=== PATIENT | male | born 1970 | race Caucasian/White ===

== ENCOUNTER 2018-11-14 11:26 | Emergency (ER) | payer OTHER ==
[2018-11-14] MEDS ORDERED: Sodium Chloride 0.9% 1,000 ML IV ONE (11:32)
[2018-11-14] MEDS ORDERED: Sodium Chloride 0.9% 10 ML Syringe FLUSH PRN (11:47)
[2018-11-14] MEDS ORDERED: LORazepam 2 MG/ML SDV IVPUSH ONE (11:55)
--- NOTE | 2018-11-14 12:27 | EDM.PDOC ---
ED HPI GENERAL MEDICAL PROBLEM - General Chief Complaint: Neuro Symptoms/Deficits Stated Complaint: POSS STROKE Time Seen by Provider: 11/14/18 12:00 Source of Information: Reports: Patient, EMS, RN, Other (friends) History Limitations: Reports: No Limitations - History of Present Illness INITIAL COMMENTS - FREE TEXT/NARRATIVE: 48 yr male presents via ambulance. EMS states pt had a seizure while out fishing with friends. Friend states pt started with seizure and fell and hit head on the boat. Pt states no pain and states he doesn't remember this. No urination during this episode, no biting of the tongue. Pt is alert now. This happened around 10:30 this am. Friend states history of alcohol use and pt stated he had 6 beers last night and none today. Pt is nervous and shaky. Small amount of hand tremor and shaky with tongue noted. Hand grasps and foot strength is equal bilaterally. Pupils reactive bilaterally. No blood noted to the mouth. Pt is alert and talking and upset that he is in the ER. - Related Data Allergies Allergy/AdvReac Type Severity Reaction Status Date / Time No Known Allergies Allergy Verified 11/14/18 11:46 ED ROS GENERAL - Review of Systems Review Of Systems: See Below Constitutional: Reports: No Symptoms HEENT: Reports: No Symptoms Respiratory: Reports: No Symptoms Cardiovascular: Reports: No Symptoms GI/Abdominal: Reports: No Symptoms : Reports: No Symptoms Musculoskeletal: Reports: No Symptoms Skin: Reports: Other (sunburn from out fishing) Neurological: Reports: Other (friend states seizure like activity in the boat. Pt doesn't remember the seizure or fall in the boat or hit on the head.) Psychiatric: Reports: Anxiety ED EXAM, NEURO - Physical Exam Exam: See Below Exam Limited By: No Limitations General Appearance: Alert, No Apparent Distress Eye Exam: Bilateral Eye: PERRL Ears: Normal External Exam, Normal Canal, Hearing Grossly Normal, Normal TMs Nose: Normal Inspection, Normal Mucosa Throat/Mouth: Normal Inspection, Normal Lips, Normal Voice, No Airway Compromise Head Exam: Normocephalic, Other (small 2 cm, linear red caroline to top of head, small amount of swelling noted.) Neck: Normal Inspection, Supple, Non-Tender Respiratory/Chest: No Respiratory Distress, Lungs Clear, Normal Breath Sounds Cardiovascular: Normal Peripheral Pulses, Regular Rate, Rhythm GI/Abdominal: Normal Bowel Sounds, Soft, Non-Tender Neurological: Alert, Normal Mood/Affect, Normal Dorsiflexion, Normal Plantar Flexion, Normal Gait, Oriented x 3 Back Exam: Normal Inspection Extremities: Normal Inspection, Normal Range of Motion, Non-Tender, No Pedal Edema, Normal Capillary Refill Psychiatric: Normal Affect, Normal Mood Skin Exam: Warm, Dry, Other (sunburn) Course - Vital Signs Last Recorded V/S: Last Vital Signs Temp 98.4 F 11/14/18 11:26 Pulse 82 11/14/18 11:26 Resp 20 11/14/18 11:26 BP 122/75 11/14/18 11:26 Pulse Ox 98 11/14/18 11:26 - Orders/Labs/Meds Orders: Active Orders 24 hr Category Date Time Status EKG Documentation Completion [RC] ASDIRECTED Care 11/14/18 11:48 Active Sodium Chloride 0.9% [Saline Flush] Med 11/14/18 11:47 Active 10 ml FLUSH ASDIRECTED PRN Peripheral IV Insertion Adult [OM.PC] Routine Oth 11/14/18 11:47 Ordered Medication Orders Sodium Chloride (Saline Flush) 10 ml FLUSH ASDIRECTED PRN PRN Reason: Keep Vein Open Labs: Laboratory Tests 11/14/18 11/14/18 Range/Units 11:50 11:50 WBC 5.5 (4.0-11.0) K/uL RBC 4.29 L (4.50-6.50) M/uL Hgb 14.4 (13.0-18.0) g/dL Hct 42.2 (40.0-54.0) % MCV 98 H (76-96) fL MCH 33.6 H (27.0-32.0) pg MCHC 34.1 (31.0-35.0) g/dL RDW 12.5 (11.0-16.0) % Plt Count 173 (150-400) K/uL MPV 9.8 (6.0-10.0) fL Neut % (Auto) 81.1 H (45.0-70.0) % Lymph % (Auto) 8.8 L (20.0-40.0) % [place] % (Auto) 7.9 (3.0-10.0) % Eos % (Auto) 1.1 (1.0-5.0) % Baso % (Auto) 1.1 H (0.0-0.5) % Neut # (Auto) 4.42 (2.00-7.50) K/uL Lymph # (Auto) 0.48 L (1.50-4.00) K/uL [place] # (Auto) 0.43 (0.20-0.80) K/uL Eos # (Auto) 0.06 (0.04-0.40) K/uL Baso # (Auto) 0.06 (0.02-0.10) K/uL Sodium 133 L (136-145) mmol/L Potassium 4.2 (3.5-5.1) mmol/L Chloride 96 L (98-107) mmol/L Carbon Dioxide 23.0 (21.0-32.0) mmol/L Anion Gap 18.2 H (5.0-15.0) mmol/L BUN 5 L (8-26) mg/dL Creatinine 0.86 (0.70-1.30) mg/dL Est Cr Clr Drug Dosing TNP Estimated GFR (MDRD) > 60 (>60) MLS/MIN BUN/Creatinine Ratio 5.8 L (6-25) Glucose 109 H (74-100) mg/dL Calcium 8.9 (8.5-10.1) mg/dL Phosphorus 2.1 L (2.5-4.9) mg/dL Magnesium 1.8 (1.8-2.4) mg/dL Total Bilirubin 1.3 H (0.0-1.0) mg/dL AST 99 H (15-37) U/L ALT 48 (12-78) U/L Alkaline Phosphatase 112 (46-116) U/L Total Protein 8.4 H (6.4-8.2) g/dL Albumin 3.7 (3.4-5.0) g/dL Globulin 4.7 H (2.2-4.2) g/dL Albumin/Globulin Ratio 0.8 (0.8-2.0) Ethyl Alcohol 47.0 H (0.0-0.0) mg/dL Meds: Medications Generic Name Dose Route Start Last Admin Trade Name Freq PRN Reason Stop Dose Admin Sodium Chloride 10 ml 11/14/18 11:47 Saline Flush FLUSH ASDIRECTED PRN Keep Vein Open - Re-Assessments/Exams Free Text/Narrative Re-Assessment/Exam: 11/14/18 12:50 CT of head completed with no masses, no hemorrhage noted, no acute infarct. Labs completed with slightly low sodium level. Discussed observation for 12 hour for repeat seizure and pt declines this. States he will be fine. He has been alert and oriented this ER visit. Low alcohol level and reported per friend of daily use, but hasn't had any since last night as he is fishing with his friend's family and didn't want to be drinking while with them. Recommend to F/U with PCP and slowly decrease alcohol use and not stop "cold [place]" or seizure is likely. Discussed use of Detox center and pt declines this, states he needs to work and will steady decrease alcohol use. Recommend daily vitamin and monitor for seizure or anxiety or signs of GI distress. IV N/S 1 Liter given and Ativan 0.25 mg IV given for anxiety and hand/tongue tremors. F/U with PCP next week or to ER if seizure returns. Pt declines observation status. Discharge to care of friend. Departure - Departure Time of Disposition: 12:52 Disposition: Home, Self-Care 01 Condition: Good Clinical Impression: Anxiety, Witnessed seizure-like activity - Discharge Information *PRESCRIPTION DRUG MONITORING PROGRAM REVIEWED*: Not Applicable *COPY OF PRESCRIPTION DRUG MONITORING REPORT IN PATIENT DONG: Not Applicable Instructions: Alcohol Withdrawal Syndrome, Chemical Dependency Referrals: PCP,None [Primary Care Provider] - Forms: ED Department Discharge Additional Instructions: Please call [phone] if you have any questions or concerns. Thank! Have a great day Maya - My Orders Last 24 Hours: My Active Orders 11/14/18 11:47 Sodium Chloride 0.9% [Saline Flush] 10 ml FLUSH ASDIRECTED PRN Peripheral IV Insertion Adult [OM.PC] Routine 11/14/18 11:48 EKG Documentation Completion [RC] ASDIRECTED - Assessment/Plan Last 24 Hours: My Active Orders 11/14/18 11:47 Sodium Chloride 0.9% [Saline Flush] 10 ml FLUSH ASDIRECTED PRN Peripheral IV Insertion Adult [OM.PC] Routine 11/14/18 11:48 EKG Documentation Completion [RC] ASDIRECTED Plan: Witnessed seizure activity by friend, probable related to low blood alcohol level in previous every day user of alcohol. Anxiety r/t low alcohol level: CT of head completed with no masses, no hemorrhage noted, no acute infarct. Labs completed with slightly low sodium level. Discussed observation for 12 hour for repeat seizure and pt declines this. States he will be fine. He has been alert and oriented this ER visit. Low alcohol level and reported per friend of daily use, but hasn't had any since last night as he is fishing with his friend's family and didn't want to be drinking while with them. Recommend to F/U with PCP and slowly decrease alcohol use and not stop "cold [place]" or seizure is likely. Discussed use of Detox center and pt declines this, states he needs to work and will steady decrease alcohol use. Recommend daily vitamin and monitor for seizure or anxiety or signs of GI distress. IV N/S 1 Liter given and Ativan 0.25 mg IV given for anxiety and hand/tongue tremors. F/U with PCP next week or to ER if seizure returns. Pt declines observation status. Discharge to care of friend.
--- NOTE | 2018-11-14 12:34 | CT ---
DATE OF SERVICE: 11/14/2018 CLINICAL DATA: Possible seizures Unenhanced brain CT: Multislice acquisition through the brain without IV contrast was performed. No priors. There is mild diffuse cerebral atrophy. There are subtle periventricular lucencies bilaterally suggesting small vessel ischemic change. There is a small lucency in the right basal ganglia consistent with a small lacunar infarct. No masses or mass effect. No intracranial hemorrhage. No evidence of acute or subacute infarct. No osseous abnormalities. Impression: No acute intracranial abnormalities. MTDD
== END 2018-11-14 12:50 | disposition home or self-care (01) ==
LOC: LB.ED 11:26
DX: R56.9 Unspecified convulsions (principal); F41.9 Anxiety disorder, unspecified; L55.9 Sunburn, unspecified
CPT/HCPCS: 36415; 70450; 80053; 83735; 84100; 85025; 93005; 96361; 96374; 99284; A0425; A0429; G0480